=== PATIENT | male | born 1995 | race Two or more races ===

== ENCOUNTER 2017-01-12 23:52 | Emergency (ER) | payer OTHER ==
[~2017-01-12] VITALS: Ht 170.2 cm; Wt 59.0 kg
[2017-01-13 00:36] VITALS: BP 123/68
== END 2017-01-13 00:35 | disposition home or self-care (01) ==
LOC: ER 23:59
DX: Z76.0 Encounter for issue of repeat prescription (principal); E11.9 Type 2 diabetes mellitus without complications; Z79.4 Long term (current) use of insulin; Z88.1 Allergy status to other antibiotic agents
CPT/HCPCS: A4606; Z7610

== ENCOUNTER 2017-02-06 21:43 | Emergency (ER) | payer OTHER ==
--- NOTE | 2017-02-06 21:48 | NUR ---
CALLED FOR TRIAGE; NO ANSWER.
--- NOTE | 2017-02-06 21:52 | NUR ---
CALLED AGAIN; NO ANSWER
--- NOTE | 2017-02-06 21:59 | NUR ---
CALLED AGAIN; NOT IN LOBBY
--- NOTE | 2017-02-06 22:05 | NUR ---
CALLED 4HT TIME; NO ANSWER.
--- NOTE | 2017-02-06 22:30 | NUR ---
To bed a 21 yo male bibself with c/o of hyperglycemia at home. Patient is alert oriented x4, ambulatory. Accucheck reads >600. No s/s of acute distress. Breathing even and unlabored. Skin warm and dry. VSS. Placed on cardiac monitoring. Awaiting for er md barrientos.
--- NOTE | 2017-02-06 22:45 | NUR ---
Started a saline lock on right ac 18g, blood drawn, called lab for picker operator.
[2017-02-06] MEDS ORDERED: IV NS 0.9% 1,000 ML BAG IV ONE (23:00)
--- NOTE | 2017-02-06 23:00 | NUR ---
xr tech at bedside.
[2017-02-06] MEDS ORDERED: IV NS 0.9% 2,000 ML ONE (23:04)
[2017-02-06] MEDS ORDERED: IV SET PRIMARY 1 EA INFUS.SET MC ONE (23:04)
--- NOTE | 2017-02-06 23:08 | NUR ---
Started IVF NS 2L as prescribed. Will continue to monitor.
[2017-02-06 23:29] LABS: BASOPHILS % (AUTO) 0.4 % (0.0-2.0); EOSINOPHILS # (AUTO) 0.2 /CMM (0.0-0.7); EOSINOPHILS % (AUTO) 3.3 % (0.0-6.0); HEMATOCRIT 45 % (39-51); HEMOGLOBIN 15.1 g/dL (13.5-17.5); LYMPHOCYTES # (AUTO) 2.1 /CMM (0.8-4.8); LYMPHOCYTES % (AUTO) 31.3 % (20.0-44.0); MEAN CORPUSCULAR HEMOGLOBIN 28 PG (26.0-33.0); MEAN CORPUSCULAR HGB CONC 34 g/dl (31.0-36.0); MEAN CORPUSCULAR VOLUME 82 fL (80-96); MONOCYTES # (AUTO) 0.4 /CMM (0.1-1.30); MONOCYTES % (AUTO) 5.4 % (2.0-12.0); NEUTROPHILS % (AUTO) 59.6 % (43.0-81.0); PLATELET COUNT (AUTO) 231 /CMM (150-450); RDW COEFFICIENT OF VARIATION 12.9 (11.5-15.0); RED BLOOD CELL COUNT(AUTO) 5.51 MIL/uL (4.5-6.0); WHITE BLOOD COUNT (AUTO) 6.8 K/uL (4.3-11.0)
[2017-02-06 23:31] LABS: BILIRUBIN,URINE NEGATIVE (NEGATIVE); BLOOD, URINE NEGATIVE Ery/uL (NEGATIVE); KETONES,URINE NEGATIVE (NEGATIVE); LEUKOCYTE ESTERASE ,URINE NEGATIVE (NEGATIVE); NITRITE, URINE NEGATIVE (NEGATIVE); PROTEIN,URINE NEGATIVE (NEGATIVE); UGLUCOSE 3+ mg/dL (NEGATIVE); UROBILINOGEN,URINE 0.2 EU/dL (0.2)
[2017-02-06 23:32] LABS: APPEARANCE,URINE CLEAR (CLEAR); COLOR,URINE STRAW (YELLOW)
[2017-02-06 23:34] LABS: ADD URINE CULTURE NO; BACTERIA,URINE None seen /HPF (None Seen); RBC,URINE NONE SEEN /HPF (0-2); WBC,URINE NONE SEEN /HPF (0-3)
[2017-02-06 23:35] LABS: SQUAMOUS EPITHELIAL CELL,UR Rare /HPF (None Seen)
[2017-02-06 23:58] LABS: BILIRUBIN,TOTAL 0.5 mg/dL (0.2-1.0); CALCIUM, SERUM 8.9 mg/dL (8.5-10.1); CREATININE 1.2 mg/dL (0.6-1.3); POTASSIUM 4.2 mmol/L (3.5-5.1); TOTAL PROTEIN, SERUM 7.9 g/dL (6.4-8.2)
--- NOTE | 2017-02-07 00:27 | NUR ---
[facility], Dr Brennan is made aware, received new orders.
[2017-02-07] MEDS ORDERED: IV SET PRIMARY 1 EA INFUS.SET MC ONE (00:28)
[2017-02-07] MEDS ORDERED: IV NS 0.9% 1,000 ML ONE (00:28)
[2017-02-07] MEDS ORDERED: INSULIN REGULAR, HUMAN 100 UNIT/ML 10 ML VIAL ONE (00:28)
[2017-02-07] MEDS ORDERED: POTASSIUM CHLORIDE 20 MEQ TAB.PRT.SR PO ONE ×2 (00:28→00:30)
[2017-02-07] MEDS ORDERED: INSULIN REGULAR, HUMAN 100 UNIT/ML 10 ML VIAL SQ ONE (00:30)
[2017-02-07] MEDS ORDERED: IV NS 0.9% 1,000 ML BAG IV ONE (00:30)
--- NOTE | 2017-02-07 01:08 | NUR ---
Blood sugar recheck is 366mg/dl. Dr Stauffer is aware.
--- NOTE | 2017-02-07 01:20 | NUR ---
Patient discharged to home in stable condition. Written and verbal after care instructions given. Patient verbalizes understanding of instruction. Patient is ambulatory with steady gait. Patient went home with some snacks and juice.
[2017-02-07 01:43] VITALS: BP 124/78
== END 2017-02-07 01:20 | disposition home or self-care (01) ==
LOC: ER 21:46
DX: E11.65 Type 2 diabetes mellitus with hyperglycemia (principal); E86.0 Dehydration; E87.1 Hypo-osmolality and hyponatremia; Z88.1 Allergy status to other antibiotic agents
CPT/HCPCS: 36415; 71010; 80053; 81001; 82962 ×3; 83690; 85025; 93005; 96360; 96372; 99285; J1815; J7030; 81000-TC

== ENCOUNTER 2017-02-10 18:19 | Inpatient (IN) | payer OTHER ==
[~2017-02-10] VITALS: Ht 162.6 cm; Wt 54.9 kg
--- NOTE | 2017-02-10 18:30 | NUR ---
PT [facility] TO ER BD 14. C/O NAUSEA AND VOMITING. GENERALIZED WEAKNESS X TODAY. PT IN CUSTODY. HX OF DIABETES. GOWNED AND PLACED ON MONITOR. AWAITING MD TODD.
--- NOTE | 2017-02-10 18:44 | NUR ---
DR GEORGE AT BEDSIDE FOR EVAL.
[2017-02-10] MEDS ORDERED: IV NS 0.9% 1,000 ML BAG IV ONE ×2 (19:00→20:00)
[2017-02-10] MEDS ORDERED: IV SET PRIMARY 1 EA INFUS.SET MC ONE (19:25)
[2017-02-10] MEDS ORDERED: IV NS 0.9% 1,000 ML ONE ×2 (19:25→20:10)
--- NOTE | 2017-02-10 19:25 | NUR ---
IV LINE STARTED. BLOOD DRAWN AND SENT TO LAB.
[2017-02-10 19:31] LABS: BASOPHILS % (AUTO) 0.3 % (0.0-2.0); EOSINOPHILS % (AUTO) 0.2 % (0.0-6.0); HEMATOCRIT 43 % (39-51); HEMOGLOBIN 14.2 g/dL (13.5-17.5); LYMPHOCYTES # (AUTO) 1.2 /CMM (0.8-4.8); LYMPHOCYTES % (AUTO) 13.4 % (20.0-44.0); MEAN CORPUSCULAR HEMOGLOBIN 27 PG (26.0-33.0); MEAN CORPUSCULAR HGB CONC 33 g/dl (31.0-36.0); MEAN CORPUSCULAR VOLUME 82 fL (80-96); MONOCYTES # (AUTO) 0.3 /CMM (0.1-1.30); MONOCYTES % (AUTO) 3.6 % (2.0-12.0); NEUTROPHILS # (AUTO) 7.7 /CMM (1.8-8.9); NEUTROPHILS % (AUTO) 82.5 % (43.0-81.0); PLATELET COUNT (AUTO) 263 /CMM (150-450); RDW COEFFICIENT OF VARIATION 12.2 (11.5-15.0); RED BLOOD CELL COUNT(AUTO) 5.26 MIL/uL (4.5-6.0); WHITE BLOOD COUNT (AUTO) 9.2 K/uL (4.3-11.0)
[2017-02-10 19:53] LABS: ALBUMIN 4.2 g/dL (3.4-5.0); BILIRUBIN,DIRECT 0.2 mg/dL (0.0-0.2); CALCIUM, SERUM 9.2 mg/dL (8.5-10.1); POTASSIUM 4.8 mmol/L (3.5-5.1); TOTAL PROTEIN, SERUM 7.9 g/dL (6.4-8.2)
[2017-02-10 20:17] LABS: ABG BASE EXCESS -8.9 mmol/L; ABG PCO2 34.9 mmHg (35.0-45.0); ABG PH 7.295 (7.350-7.450); ABG PO2 54.9 mmHg (75.0-100.0); COHb 0.9 % (0.5-1.5); MetHb 0.7 % (0.0-1.5); O2Hb 83.6 % (94.0-97.0); SITE, ABG Left Brachial; VENT MODE, BG RA
[2017-02-10] MEDS ORDERED: IV PREMIX 0.45% NS + KCL 1,000 ML IV ONE ×2 (20:35→21:11)
--- NOTE | 2017-02-10 20:39 | NUR ---
PAGED ASSURANCE SERVICES MANAGER HEALTH CARE PANEL DR ROMERO
[2017-02-10 20:40] LABS: APPEARANCE,URINE Clear (CLEAR); BILIRUBIN,URINE Negative (NEGATIVE); BLOOD, URINE Negative Ery/uL (NEGATIVE); COLOR,URINE Yellow (YELLOW); KETONES,URINE >=160 (NEGATIVE); LEUKOCYTE ESTERASE ,URINE Negative (NEGATIVE); NITRITE, URINE Negative (NEGATIVE); PROTEIN,URINE Negative (NEGATIVE); UGLUCOSE 500 MG/DL mg/dL (NEGATIVE); UROBILINOGEN,URINE 0.2 EU/dL (0.2)
[2017-02-10] MEDS ORDERED: IV SET PRIMARY PUMP SET 1 EA INFUS.SET MC ONE ×2 (20:47→21:12)
--- NOTE | 2017-02-10 20:58 | NUR ---
INSULIN DRIP STARTED. DOSE VERIFIED W/ CHARGE NURSE
[2017-02-10] MEDS ORDERED: INSULIN REGULAR, HUMAN 100 UNIT in IV NS 0.9% 99 ML IV ONE ×2 (21:00)
--- NOTE | 2017-02-10 21:06 | NUR ---
BLOOD SUGAR RECHECK 333 MG/DL. ERMZina AWRE.
[2017-02-10 21:15] LABS: ADD URINE CULTURE NO; BACTERIA,URINE None seen /HPF (None Seen); RBC,URINE 0-2 /HPF (0-2); SQUAMOUS EPITHELIAL CELL,UR None Seen /HPF (None Seen); WBC,URINE 0-2 /HPF (0-3)
--- NOTE | 2017-02-10 21:27 | NUR ---
REPORT GIVEN TO SHANTEL. PT AWAITING TRANSFER TO FLOOR.
[2017-02-10] MEDS ORDERED: IV NS 0.9% 1,000 ML IV PRN (21:28)
[2017-02-10] MEDS ORDERED: IV PREMIX D5 1/2NS + KCL 1,000 ML IV PRN (21:28)
[2017-02-10] MEDS ORDERED: INSULIN REGULAR, HUMAN 100 UNIT in IV NS 0.9% 99 ML IV PRN ×2 (21:30)
[2017-02-10] MEDS ORDERED: ONDANSETRON HCL/PF 4 MG/2 ML VIAL IVP PRN (21:30)
[2017-02-10] MEDS ORDERED: ACETAMINOPHEN 325 MG TABLET PO PRN (21:30)
--- NOTE | 2017-02-10 21:40 | NUR ---
ICU/RN- RECEIVED PT FROM ER W/ DX OF DKA. PT IS IN CUSTODY W/ 2 [facility] AT BEDSIDE. PT A/OX4. STATES THAT HE HAS SLIGHT NAUSEA AT THIS TIME. ON MONITOR W/ SR 80S. ON RA W/ O2 SAT 98%. RESP EVEN AND UNLABORED. HL 18 FA X2 PATENT AND INTACT W/ INSULIN AT 4UNITS/HR. TOLERATING WELL. WILL TITRATE PER PROTOCOL. 1/2NS + 20MEQ KCL INFUSING @ 100ML/HR FROM ER. INSTRUCTED PT TO USE CALL LIGHT FOR ASSISTANCE. CALL LIGHT W/ IN REACH. AWAITING ADMITTING ORDERS.
[2017-02-10 22:00] VITALS: BP 121/49
[2017-02-10] MEDS ORDERED: BLOOD SUGAR DIAGNOSTIC 1 EACH STRIP IN ONE (22:00)
[2017-02-10 22:30] VITALS: BP 119/63
--- NOTE | 2017-02-10 22:30 | NUR ---
ICU/RN- CLARIFIED ORDERS W/ DR ROMERO. ORDERED ACCUCHECKS Q 1 HR AND CALCULATE UNITS BY BSX2 /100. BMP Q 4 HRS. CHANGE IV TO D5 1/2 NS WHEN BS < 250. STOP INSULIN DRIP WHEN ANION GAP <12. THEN START PT ON REGULAR INSULIN SQ W/ MODERATE SLIDING SCALE. ORDERS CARRIED OUT.
[2017-02-10] MEDS: BLOOD SUGAR DIAGNOSTIC 1 EACH STRIP IN SCH (22:59)
[2017-02-10 23:00] VITALS: BP 125/73
[2017-02-10] MEDS ORDERED: IV PREMIX D5 1/2NS + KCL 1,000 ML IV ONE (23:06)
[2017-02-10 23:19] LABS: CALCIUM, SERUM 8.2 mg/dL (8.5-10.1); CREATININE 0.9 mg/dL (0.6-1.3); POTASSIUM 4.1 mmol/L (3.5-5.1)
[2017-02-11] VITALS (30 sets, daily range): BP systolic 86–142; BP diastolic 41–82
[2017-02-11] MEDS: BLOOD SUGAR DIAGNOSTIC 1 EACH STRIP IN SCH ×12 (00:11→20:09)
[2017-02-11] MEDS ORDERED: QUET300T2 PO (01:14)
[2017-02-11] MEDS ORDERED: SERT50TA PO (01:14)
[2017-02-11] MEDS ORDERED: BUPR100T5 PO (01:14)
--- NOTE | 2017-02-11 01:18 | NUR ---
ICU/RN- INFORMED MD ABOUT UPDATED MED RECON AND PT REQUEST FOR SLEEPING AID MEDICATION. OK'D TO CONTINUE HOME MEDS AND GIVE RESTORIL 15 MG Q HS PRN SLEEP. ORDERS CARRIED OUT.
[2017-02-11] MEDS ORDERED: TEMAZEPAM 15 MG CAPSULE ONE (01:19)
[2017-02-11] MEDS ORDERED: TEMAZEPAM 15 MG CAPSULE PO PRN (01:30)
[2017-02-11 03:10] LABS: BASOPHILS % (AUTO) 0.2 % (0.0-2.0); EOSINOPHILS # (AUTO) 0.1 /CMM (0.0-0.7); EOSINOPHILS % (AUTO) 1.3 % (0.0-6.0); HEMATOCRIT 39 % (39-51); HEMOGLOBIN 13.2 g/dL (13.5-17.5); LYMPHOCYTES % (AUTO) 33.6 % (20.0-44.0); MEAN CORPUSCULAR HEMOGLOBIN 27 PG (26.0-33.0); MEAN CORPUSCULAR HGB CONC 34 g/dl (31.0-36.0); MEAN CORPUSCULAR VOLUME 81 fL (80-96); MONOCYTES # (AUTO) 0.7 /CMM (0.1-1.30); MONOCYTES % (AUTO) 7.2 % (2.0-12.0); NEUTROPHILS # (AUTO) 5.2 /CMM (1.8-8.9); NEUTROPHILS % (AUTO) 57.7 % (43.0-81.0); PLATELET COUNT (AUTO) 251 /CMM (150-450); RDW COEFFICIENT OF VARIATION 13.4 (11.5-15.0); RED BLOOD CELL COUNT(AUTO) 4.87 MIL/uL (4.5-6.0); WHITE BLOOD COUNT (AUTO) 9.1 K/uL (4.3-11.0)
[2017-02-11 03:27] LABS: CALCIUM, SERUM 8.3 mg/dL (8.5-10.1); POTASSIUM 4.1 mmol/L (3.5-5.1)
--- NOTE | 2017-02-11 06:37 | NUR ---
ICU/RN- NAD NOTED. ALL NEEDS ATTENDED AND MET. WILL ENDORSE TO AM SHIFT FOR CONTINUATION OF CARE.
--- NOTE | 2017-02-11 07:30 | NUR ---
LABOR CONTRACTOR: pt.is A.Ox4, no c/o, no pain, VSS, BS 89 at 07.00 and insulin drip was stopped, continue IVF NS 150ml/h by night nurse report, waiting next BMP, GAP 12, pt.is underwear welter custody in the room
[2017-02-11 07:45] LABS: CALCIUM, SERUM 8.5 mg/dL (8.5-10.1); CREATININE 0.7 mg/dL (0.6-1.3)
--- NOTE | 2017-02-11 08:02 | NUR ---
BARREL FINISHER: BS 80, spoke with pharmacy, paged for orders verification
--- NOTE | 2017-02-11 08:30 | NUR ---
AIRCRAFT ASSEMBLER: updated with insulin gtt is off since 07.00, BS, IVF, labs, gap, diet, ordered: accuV q4h with moderate R.insulin SS coverage, continue D5 1/2NS@100ml/h, charge nurse updated
[2017-02-11] MEDS: SERTRALINE HCL 50 MG TABLET PO SCH (08:39)
[2017-02-11] MEDS: PANTOPRAZOLE 40 MG TABLET.DR PO SCH (08:39)
[2017-02-11] MEDS ORDERED: DEXTROSE 50%-WATER 50 ML DISP.SYRIN IV PRN (09:00)
[2017-02-11] MEDS ORDERED: IV D5/0.45 NACL 1,000 ML IV PRN (09:00)
[2017-02-11] MEDS ORDERED: IV D5/0.45 NACL 1,000 ML IV ONE (09:04)
--- NOTE | 2017-02-11 11:00 | NUR ---
COMMUNICATIONS MANAGER: is in room, spoke with pt., mark, updated with pt.current condition, VS, BS, IVF, diet/appetite, labs, meds, said: continue current IVF same rate D5 1/2NS bag, monitor BS, appetite, able to d/c f/u monitoring, see next BMP and continue daily
[2017-02-11] MEDS: buPROPion SR 100 MG TABLET.ER PO SCH (11:06)
[2017-02-11 11:45] LABS: CALCIUM, SERUM 8.1 mg/dL (8.5-10.1); CREATININE 0.9 mg/dL (0.6-1.3); POTASSIUM 5.5 mmol/L (3.5-5.1)
--- NOTE | 2017-02-11 12:30 | NUR ---
ADVANCED PRACTICE NURSE PSYCHOTHERAPIST: BS 551, Gap 15, Na 129, K 5.5, called back, updated, ordered: ok to give R.Insulin 15 units sq per moder.SS, BMP at 16.00, stop IVF
[2017-02-11] MEDS: INSULIN REGULAR, HUMAN 100 UNIT/ML 3 ML VIAL SQ PRN ×3 (12:38→20:17)
[2017-02-11 16:45] LABS: CALCIUM, SERUM 8.7 mg/dL (8.5-10.1); CREATININE 0.9 mg/dL (0.6-1.3); POTASSIUM 3.7 mmol/L (3.5-5.1)
--- NOTE | 2017-02-11 17:30 | NUR ---
HAND POTTER: pt.is A/Ox4, no c/o, no pain, SR, O2sat., BP WNL, Na 133, K 3.7, gap 10, BS 333, on mod.RISS q4hr
--- NOTE | 2017-02-11 19:30 | NUR ---
ICU/RN- PT IN ROOM A/OX4, DENIES ANY S/SX OF HYPO/HYPERGLYCEMIA. PT IN CUSTODY W/ X2 RUSSIAN TEACHER OFFICERS AT BEDSIDE. HAND CUFF IN PLACE ON R WRIST. ON RA W/ O2 SAT 98%. RESP EVEN AND UNLABORED. HL IN RFA AND RW PATENT AND INTACT. INSTRUCTED PT TO USE CALL LIGHT FOR ASSISTANCE. WILL MONITOR ACCORDINGLY.
[2017-02-11] MEDS: QUETIAPINE FUMARATE 100 MG TABLET PO SCH (21:41)
[2017-02-12] VITALS (12 sets, daily range): BP systolic 96–116; BP diastolic 59–69
[2017-02-12] MEDS: BLOOD SUGAR DIAGNOSTIC 1 EACH STRIP IN SCH ×6 (00:08→21:03)
[2017-02-12] MEDS: INSULIN REGULAR, HUMAN 100 UNIT/ML 3 ML VIAL SQ PRN ×5 (00:10→21:07)
[2017-02-12 04:52] LABS: CALCIUM, SERUM 8.8 mg/dL (8.5-10.1); CREATININE 0.8 mg/dL (0.6-1.3)
--- NOTE | 2017-02-12 05:10 | NUR ---
RECEIVED REPORT FROM ICU REGARDING TRANSFER. AWAITING ARRIVAL IN UNIT, ROOM IS READY
--- NOTE | 2017-02-12 05:11 | NUR ---
ICU/RN- REPORT GIVEN TO ELADIA BURNS FOR MS TRANSFER TO RM 205.
--- NOTE | 2017-02-12 05:40 | NUR ---
ICU/RN- TRANSFERRED PT TO [place] [id number] IN STABLE CONDITION. W/ X 2 PIE BAKER AT BEDSIDE
--- NOTE | 2017-02-12 05:45 | NUR ---
RECEIVED PATIENT FROM ICU, ALERT AND ORIENTED X4, CALM, ON ROOM AIR, 02 SAT 100%, DENIES ANY PAIN AT THIS TIME, LUNG SOUNDS ARE CLEAR, ABDOMEN SOFT AND NON-TENDER, BG IS 90 MG/DL NO COVERAGE, ACCUCHECK Q4 HOURS. PATIENT IS UNDER POLICE CUSTODY, WITH HANDCUFF TIED TO THE BED, USES URINAL TO VOID. NEEDS ATTENDED, CALL LIGHT WITHIN REACH.
--- NOTE | 2017-02-12 07:51 | NUR ---
AM RN NOTES RECEIVED PT SLEEPING COMFORTABLY IN BED, EASY TO AWAKE, MONITORED BY POLICE AT BEDSIDE, NO S/S OF HYPO OR HYPERGLYCEMIA, WILL MONITOR PT. Addendum: 02/12/17 at 0902 by MARTHA MCNAIR RN ADDENDUM: ABOVE NOTE DOCUMENTED BY ME UNDER WRONG LOG IN, DOCUMENTATION IS CORRECT.
[2017-02-12] MEDS: SERTRALINE HCL 50 MG TABLET PO SCH (08:42)
[2017-02-12] MEDS: PANTOPRAZOLE 40 MG TABLET.DR PO SCH (08:42)
[2017-02-12] MEDS: buPROPion SR 100 MG TABLET.ER PO SCH (08:42)
--- NOTE | 2017-02-12 08:50 | NUR ---
PT RESTING IN BED, NOTED WITH HYPERGLYCEMIA BS 554 MG/DL, ASYMPTOMATIC , INFORMED NEW ORDER RECEIVED
[2017-02-12] MEDS ORDERED: INSULIN DETEMIR 100 UNIT/ML CARTRIDGE SQ STA (08:51)
--- NOTE | 2017-02-12 09:22 | NUR ---
BS RECHECKED PRIOR TO ADMINISTER LONG ACTING INSULIN SHOWS "HIGH", PT ALERT AND ORIENTED, ASYMPTOMATIC, PT REFUSED TO RECHECK BS AT THIS TIME, LONG ACTING INSULIN 20 UNITS GIVEN PER ORDER, WILL MONITOR.
--- NOTE | 2017-02-12 09:45 | NUR ---
BLOOD SUGAR CHECK DONE X2 SHOWS "HI", PT IS ASYMPTOMATIC, INFORMED.
[2017-02-12] MEDS ORDERED: INSULIN REGULAR, HUMAN 100 UNIT/ML 10 ML VIAL SQ STA (09:56)
--- NOTE | 2017-02-12 09:56 | NUR ---
DR. LIANG CALLED BACK, NEW ORDERS RECEIVED.
[2017-02-12] MEDS ORDERED: IV NS 0.9% 1,000 ML IV ONE (10:00)
[2017-02-12] MEDS ORDERED: SECONDARY IV SET 1 EA INFUS.SET MC ONE (10:08)
[2017-02-12] MEDS ORDERED: IV SET PRIMARY PUMP SET 1 EA INFUS.SET MC ONE (10:11)
--- NOTE | 2017-02-12 10:58 | NUR ---
CALLED AFTER REPORTING BS 583 MG/DL, NEW ORDER RECEIVED, TO GIVE ANOTHER 20 UNITS OF LONG ACTING INSULIN. PT ALERT AND ORIENTED, WATCHING TV. WILL MONITOR.
[2017-02-12] MEDS ORDERED: INSULIN DETEMIR 100 UNIT/ML CARTRIDGE SQ ONE (11:00)
[2017-02-12] MEDS ORDERED: POTASSIUM CHLORIDE 20 MEQ TAB.PRT.SR PO SCH (11:30)
[2017-02-12] MEDS ORDERED: INSU3INS6 SUBCUT (12:03)
--- NOTE | 2017-02-12 12:10 | NUR ---
PT SEEN BY DR. PITTMAN
[2017-02-12] MEDS: INSULIN ASPART NOVOLOG 100 UNIT/ML CARTRIDGE SQ SCH ×3 (12:33→21:06)
[2017-02-12 13:11] LABS: CALCIUM, SERUM 8.7 mg/dL (8.5-10.1); CREATININE 0.9 mg/dL (0.6-1.3); POTASSIUM 3.9 mmol/L (3.5-5.1)
--- NOTE | 2017-02-12 17:04 | NUR ---
PT NOTED WITH BS 49 MG/DL, ASYMPTOMATIC, ALERT AND ORIENTED, D50% GIVEN PER ORDER, WILL INFORM MD AND MONITOR BS
--- NOTE | 2017-02-12 17:29 | NUR ---
D50% ADMINISTERED FOR HYPOGLYCEMIA, BS RECHECKED AND NOTE 203 MG/DL, DR MARADIAGA INFORMED AND PER MD TO GIVE INSULIN PER SLIDING SCALE BEFORE DINNER. WILL MONITOR PT
--- NOTE | 2017-02-12 18:10 | NUR ---
PT CONSUMES HIS DINNER, INSULIN PER SLIDING SCALE GIVEN PER DR. MARADIAGA'S ORDER.
--- NOTE | 2017-02-12 18:18 | NUR ---
PT IN STABLE CONDITION, POLICE OFFICERS ARE AT BEDSIDE, WILL INDORSE TO NEXT SHIFT FOR MATI.
--- NOTE | 2017-02-12 19:40 | NUR ---
MS RN NOTE: PATIENT RESTING IN BED, NO ACUTE DISTRESS NOTED, COMMUNICATIONS STATION MANAGER OFFICERS AT BEDSIDE. BREATHING EVEN AND UNLABORED, NO SOB NOTED. HL TO RIGHT WRIST IN PLACE. PATIENT DENIES S/S OF HYPER/HYPOGLYCEMIA AT THIS TIME. BED LOCKED AND IN LOWEST POSITION, CALL LIGHT IN REACH, WILL CONTINUE TO MONITOR.
[2017-02-12] MEDS: QUETIAPINE FUMARATE 100 MG TABLET PO SCH (21:03)
--- NOTE | 2017-02-12 21:15 | NUR ---
MS RN NOTE: PATIENT BLOOD SUGAR LEVEL 365 MG/DL, PATIENT TO RECEIVE 15 UNITS OF REGULAR INSULIN PER SLIDING SCALE AND 5 UNITS OF NOVOLOG PER MD ORDER. PATIENT DENIES S/S OF HYPERGLYCEMIA AT THIS TIME. WILL CONTINUE TO MONITOR.
--- NOTE | 2017-02-12 23:00 | NUR ---
MS RN NOTE: PATIENT REQUESTING TO RECHECK BLOOD SUGAR LEVEL SINCE HIS BLOOD SUGAR TRENDS TO VARY. BLOOD SUGAR LEVEL 310 MG/DL. PATIENT DENIES S/S OF HYPER/HYPOGLYCEMIA AT THIS TIME. INFORMED THAT BLOOD SUGAR WILL BE CHECKED AGAIN AT 0100. WILL CONTINUE TO MONITOR.
[2017-02-13] MEDS: BLOOD SUGAR DIAGNOSTIC 1 EACH STRIP IN SCH ×4 (00:48→12:10)
--- NOTE | 2017-02-13 01:00 | NUR ---
MS RN NOTE: PATIENT BLOOD SUGAR LEVEL 110 MG/DL, NO INSULIN NEEDED PER SLIDING SCALE, PATIENT DENIES S/S OF HYPOGLYCEMIA AT THIS TIME. SNACKS PROVIDED, WILL CONTINUE TO MONITOR.
--- NOTE | 2017-02-13 06:00 | NUR ---
MS RN NOTE: PATIENT RESTING IN BED, NO ACUTE DISTRESS NOTED, VICE PRESIDENT OF ENGINEERING OFFICERS AT BEDSIDE. BREATHING EVEN AND UNLABORED, NO SOB NOTED. HL TO RIGHT WRIST IN PLACE. PATIENT BLOOD SUGAR LEVEL 93MG/DL, PATIENT DENIES S/S OF HYPOGLYCEMIA AT THIS TIME. SNACKS PROVIDED. BED LOCKED AND IN LOWEST POSITION, CALL LIGHT IN REACH, WILL ENDORSE TO DAY NURSE TO CONTINUE WITH PLAN OF CARE.
[2017-02-13 07:03] LABS: CALCIUM, SERUM 8.8 mg/dL (8.5-10.1); CREATININE 0.8 mg/dL (0.6-1.3); POTASSIUM 4.1 mmol/L (3.5-5.1)
--- NOTE | 2017-02-13 07:15 | NUR ---
MS RN NOTE: PATIENT RESTING IN BED, NO ACUTE DISTRESS NOTED, ACCOUNTS ADJUSTABLE CLERK OFFICERS AT BEDSIDE. BREATHING EVEN AND UNLABORED, NO SOB NOTED. HL TO RIGHT WRIST IN PLACE. PATIENT DENIES S/S OF HYPOGLYCEMIA AT THIS TIME. SNACKS PROVIDED. BED LOCKED AND IN LOWEST POSITION, CALL LIGHT IN REACH.
[2017-02-13] MEDS: INSULIN DETEMIR 100 UNIT/ML CARTRIDGE SQ SCH ×2 (07:21→09:18)
[2017-02-13] MEDS: INSULIN ASPART NOVOLOG 100 UNIT/ML CARTRIDGE SQ SCH ×2 (07:22→12:13)
--- NOTE | 2017-02-13 07:25 | NUR ---
MS RN NOTE: PATIENT BLOOD SUGAR 309 MG/DL, PATIENT TO RECEIVE 40 UNITS OF LEVEMIR AND 5 UNITS OF NOVOLOG PER MD ORDER. SNACKS AT BEDSIDE. PATIENT DENIES S/S OF HYPER/HYPOGLYCEMIA AT THIS TIME. WILL ENDORSE TO DAY NURSE.
[2017-02-13 08:00] VITALS: BP 106/57
--- NOTE | 2017-02-13 09:00 | NUR ---
ms rn notes Levemir 40 units not given due to assistant casino shift manager RN already given the dose at 730am. MD made aware. Will continue to monitor patient.
[2017-02-13] MEDS: buPROPion SR 100 MG TABLET.ER PO SCH (09:13)
[2017-02-13] MEDS: SERTRALINE HCL 50 MG TABLET PO SCH (09:13)
[2017-02-13] MEDS: PANTOPRAZOLE 40 MG TABLET.DR PO SCH (09:13)
[2017-02-13] MEDS: INSULIN REGULAR, HUMAN 100 UNIT/ML 3 ML VIAL SQ PRN ×2 (09:20→12:55)
--- NOTE | 2017-02-13 09:21 | NUR ---
WOUND CARE CONSULT: PT PRESENTS WITH DRY SCRATCHES TO LEFT ARM AND SMALL DRY SCAB TO RT HAND, PRESENT ON ADMISSION. NO WOUND CARE NEEDED AT THIS TIME. WILL SEE PRN. OFFICERS AT BEDSIDE. Addendum: 02/13/17 at 0922 by SUE SPAULDING WNDNU Amended: Links added.
--- NOTE | 2017-02-13 14:50 | NUR ---
MS BELT MACHINE OPERATOR NOTES: DISCHARGE INSTRUCTIONS GIVEN TO PATIENT. PT ABLE TO UNDERSTAND. SIGNED DISCHARGE PAPERS AND BELONGINGS LIST. DISCONTINUED IV. PT WAS ALERT AND ORIENTED. NO SIGNS AND SYMPTOMS OF DISCOMFORT AND PAIN. BOILER ROOM OPERATOR'S ON SITE FOR CONSTANT MONITORING. FLU VACCINE NOT GIVEN. PT ALREADY HAD IT ON 2016. PNEUMONIA VACCINE N/A. PT IS BELOW 67 Y/O. PT LEFT VIA AMBULATORY ACCOMPANIED BY 2 INSPECTOR PLATING. IN STABLE CONDITION. NO SIGNS AND SYMPTOMS OF SOB AND DISTRESS. PICTURES TAKEN BY DRUG COORDINATOR NURSE AND FILED IN CHART. MD AND CHARGE NURSE AWARE. VITAL SIGNS CHECKED AND RECORDED.
== END 2017-02-13 14:50 | DRG 639 ==
LOC: ER 18:20 → ICU 20:41 → MEDSG2 02-12 05:25
PROVIDERS: ADMIT Internal Medicine; ATTEND Internal Medicine
DX: E10.10 Type 1 diabetes mellitus with ketoacidosis without coma (principal); F29 Unspecified psychosis not due to a substance or known physiological condition; E87.6 Hypokalemia; E83.42 Hypomagnesemia; E86.0 Dehydration; F17.210 Nicotine dependence, cigarettes, uncomplicated; Z83.3 Family history of diabetes mellitus; F20.9 Schizophrenia, unspecified
CPT/HCPCS: 36415; 36600; 80048-TC; 80076-TC; 81000-TC; 82962-TC; 83690-TC; 85025-TC; 87081-TC; A4606; J1815; J2405; J3490; J7030; Z7610

== ENCOUNTER 2017-03-07 22:35 | Emergency (ER) | payer OTHER ==
[~2017-03-07] VITALS: Ht 152.4 cm; Wt 56.7 kg
[~2017-03-07 22:35] MED LIST: BUPR100T5 PO; INSU3INS6 SUBCUT; QUET300T2 PO; SERT50TA PO
[2017-03-07 22:58] VITALS: BP 114/73
== END 2017-03-07 23:11 | disposition home or self-care (01) ==
LOC: ER 22:36
DX: Z76.0 Encounter for issue of repeat prescription (principal); E11.9 Type 2 diabetes mellitus without complications; F32.9 Major depressive disorder, single episode, unspecified; F31.9 Bipolar disorder, unspecified; F41.9 Anxiety disorder, unspecified; F20.9 Schizophrenia, unspecified; F90.9 Attention-deficit hyperactivity disorder, unspecified type; Z90.89 Acquired absence of other organs; Z88.1 Allergy status to other antibiotic agents
CPT/HCPCS: A4606; Z7610

== ENCOUNTER 2017-05-25 16:33 | Inpatient (IN) | payer OTHER ==
[~2017-05-25] VITALS: Ht 162.6 cm; Wt 51.3 kg
[2017-05-25] MEDS ORDERED: INSULIN REGULAR, HUMAN 100 UNIT/ML 10 ML VIAL ONE (16:45)
[2017-05-25] MEDS ORDERED: IV NS 0.9% 1,000 ML ONE ×3 (16:45→18:12)
--- NOTE | 2017-05-25 16:50 | NUR ---
PT CAME IN FOR HIGH BLOOD SUGAR. HX OF DM TYPE 1. PER PT SHE RAN OUT OF MEDS LAST NIGHT. NOTED BLOOD SUGAR ABOVE 600MG/DL. AT BS FOR EVAL. PT AAOX3. VSS. SAFETY AND COMFORT MEASURES PROVIDED. WILL MONITOR.
--- NOTE | 2017-05-25 16:55 | NUR ---
witnessed 10 units regular insulin with natanael noonan
[2017-05-25 16:57] LABS: BASOPHILS % (AUTO) 0.5 % (0.0-2.0); EOSINOPHILS # (AUTO) 0.1 /CMM (0.0-0.7); EOSINOPHILS % (AUTO) 0.9 % (0.0-6.0); HEMATOCRIT 48 % (39-51); HEMOGLOBIN 15.3 g/dL (13.5-17.5); LYMPHOCYTES # (AUTO) 1.5 /CMM (0.8-4.8); LYMPHOCYTES % (AUTO) 16.5 % (20.0-44.0); MEAN CORPUSCULAR HEMOGLOBIN 27 PG (26.0-33.0); MEAN CORPUSCULAR HGB CONC 32 g/dl (31.0-36.0); MEAN CORPUSCULAR VOLUME 84 fL (80-96); MONOCYTES # (AUTO) 0.2 /CMM (0.1-1.30); MONOCYTES % (AUTO) 2.2 % (2.0-12.0); NEUTROPHILS # (AUTO) 7.3 /CMM (1.8-8.9); NEUTROPHILS % (AUTO) 79.9 % (43.0-81.0); PLATELET COUNT (AUTO) 260 /CMM (150-450); RDW COEFFICIENT OF VARIATION 11.9 (11.5-15.0); RED BLOOD CELL COUNT(AUTO) 5.69 MIL/uL (4.5-6.0); WHITE BLOOD COUNT (AUTO) 9.1 K/uL (4.3-11.0)
--- NOTE | 2017-05-25 16:58 | NUR ---
IV ACCESS STARTED. BLOOD DRAWN FOR LABS. PT MEDICATED ORDERED.
[2017-05-25] MEDS ORDERED: IV NS 0.9% 1,000 ML BAG IV ONE ×3 (17:00→18:00)
[2017-05-25] MEDS ORDERED: INSULIN REGULAR, HUMAN 100 UNIT/ML 10 ML VIAL IV ONE (17:00)
[2017-05-25 17:11] LABS: CALCIUM, SERUM 8.5 mg/dL (8.5-10.1); CREATININE 1.3 mg/dL (0.6-1.3); POTASSIUM 4.3 mmol/L (3.5-5.1)
[2017-05-25] MEDS ORDERED: ONDANSETRON HCL/PF 4 MG/2 ML VIAL IVP ONE (18:00)
[2017-05-25] MEDS ORDERED: ONDANSETRON HCL/PF 4 MG/2 ML VIAL ONE (18:12)
--- NOTE | 2017-05-25 18:15 | NUR ---
CALLED , TRANSFERRED CALL TO
--- NOTE | 2017-05-25 18:16 | NUR ---
CALLED NURSING SUP. FOR ICU BED
[2017-05-25] MEDS ORDERED: IV SET PRIMARY PUMP SET 1 EA INFUS.SET MC ONE ×2 (18:28→21:05)
[2017-05-25] MEDS ORDERED: INSULIN REGULAR, HUMAN 100 UNIT in IV NS 0.9% 99 ML IV PRN ×4 (18:30→22:00)
--- NOTE | 2017-05-25 19:28 | NUR ---
REPORT CALLED TO RN SCHOOLELADIA ZHOU. WILL TRANSPORT PT VIA ACLS PROTOCOL.
--- NOTE | 2017-05-25 19:30 | NUR ---
RN NOTES RECEIVED REPORT FROM COMMERCIAL LINES ASSISTANT ED FOR THE PATIENT'S CONTINUITY OF CARE
[2017-05-25 19:50] VITALS: BP 99/52
--- NOTE | 2017-05-25 19:50 | NUR ---
RN NOTES PT ARRIVED ON THE UNIT, A/O X4, ON ROOM AIR. DENIES ANY PAIN OR SOB. ABLE TO AMBULATE WITH A STEADY GAIT. SKIN IS INTACT. RIGHT FOREARM 20G WITH INSULIN DRIP @ 2UNITS/HR THAT WAS INITIATED IN ER. PT IS CONTINENT. VITALS STABLE. BLOOD SUGAR CURRENTLY 192. BED LOCKED AND LOW, SIDERAILS UP, CALL LIGHT WITHIN REACH. WILL CALL DR SINGH FOR ADMITTING ORDERS
[2017-05-25 20:01] VITALS: BP 99/52
--- NOTE | 2017-05-25 20:50 | NUR ---
RN NOTES CALLED DR SINGH FOR ADMITTING ORDERS. ALSO NOTIFIED HIM THAT PATIENT IS STILL ON INSULIN DRIP @ 2UNITS/HR AND MOST CURRENT BLOOD SUGAR WAS 192. RECEIVED VIA PHONE FROM DR SINGH: ADMIT TO ICU: DKA DIAGNOSIS DIABETIC DIET 1800 ADA STAT BNP AND CALL BACK FOR ANION GAP RESULT 1L NS BOLUS NOW NS+20MEQKCL @ 100MLS/HR LANTUS 40UNITS QHS NOVOLOG 6 UNITS QAC BEFORE MEALS AMBIEN 5MG HS PRN TYLENOL 650MG PO Q6H PRN ZOFRAN 4MG IV Q4H PRN DR SINGH WILL DECIDE TO CONTINUE OR DC INSULIN DRIP AFTER GETTING ANION GAP RESULT FROM STAT BMP. WILL INITIATE ORDERS.
[2017-05-25 21:00] VITALS: BP 112/56
[2017-05-25] MEDS ORDERED: ACETAMINOPHEN 325 MG TABLET PO PRN (21:00)
[2017-05-25] MEDS ORDERED: ZOLPIDEM TARTRATE 5 MG TABLET PO PRN (21:00)
[2017-05-25] MEDS ORDERED: ONDANSETRON HCL/PF 4 MG/2 ML VIAL IV PRN (21:00)
[2017-05-25] MEDS ORDERED: Potassium Chloride 20 MEQ in IV NS 0.9% 1,000 ML IV PRN (21:00)
[2017-05-25] MEDS ORDERED: IV NS 0.9% 1,000 ML IV ONE (21:00)
[2017-05-25 21:13] LABS: CALCIUM, SERUM 7.3 mg/dL (8.5-10.1); CREATININE 0.8 mg/dL (0.6-1.3); POTASSIUM 3.5 mmol/L (3.5-5.1)
--- NOTE | 2017-05-25 21:40 | NUR ---
RN NOTES CALLED DR SINGH TO NOTIFY ABOUT CURRENT ANION GAP OF [address] SINGH ORDERED IV FLUID TO BE CHANGED TO D5NS+YTK52GFR @ 80MLS/HR, BMP Q4H (NEXT ONE @ 0100), RESUME INSULIN DRIP @ 2UNITS/HR (NO TITRATION), ACCU CHECKS Q1H, AND TO CALL HIM NEEDED OR WHEN ANION GAP CLOSES
[2017-05-25] MEDS ORDERED: buPROPion 100 MG TABLET ONE (21:55)
[2017-05-25] MEDS ORDERED: DIVALPROEX SODIUM 500 MG TABLET.DR PO ONE (21:56)
[2017-05-25] MEDS ORDERED: QUETIAPINE FUMARATE 100 MG TABLET ONE (21:56)
[2017-05-25] MEDS ORDERED: buPROPion 100 MG TABLET PO SCH (22:00)
[2017-05-25] MEDS ORDERED: QUETIAPINE FUMARATE 100 MG TABLET PO SCH (22:00)
[2017-05-25] MEDS ORDERED: DIVALPROEX SODIUM 500 MG TABLET.DR PO SCH (22:00)
[2017-05-25] MEDS ORDERED: INSULIN GLARGINE, 100 UNIT/ML CARTRIDGE SQ SCH ×2 (22:00)
[2017-05-25] MEDS ORDERED: Potassium Chloride 20 MEQ in IV D5/ 0.9% NACL 1,000 ML IV PRN (22:00)
[2017-05-25] MEDS ORDERED: INSULIN DETEMIR 100 UNIT/ML CARTRIDGE SQ SCH (22:00)
[2017-05-25 22:04] VITALS: BP 105/45
[2017-05-25] MEDS ORDERED: IV PREMIX D5 NS + KCL 1,000 ML IV ONE (22:05)
[2017-05-25] MEDS ORDERED: INSULIN DETEMIR 100 UNIT/ML CARTRIDGE SQ ONE (22:05)
[2017-05-25 23:00] VITALS: BP 83/40
[2017-05-25 23:47] VITALS: BP 105/60
[2017-05-26] VITALS (12 sets, daily range): BP systolic 88–106; BP diastolic 48–68
--- NOTE | 2017-05-26 01:11 | NUR ---
RN NOTES FORGOT TO ADD ACCU CHECK Q1H IN EMAR, BUT ACCU CHECKS HAVE BEEN DONE Q1H. IV SPREADSHEET AND LAB VALUES IN EMR REFLECT Q1H ACCU CHECKS THAT HAVE BEEN DONE: 2200 - BS 128 2300 - BS 236 0000 - BS 224 0100 - BS 203
[2017-05-26 01:41] LABS: CALCIUM, SERUM 7.8 mg/dL (8.5-10.1); CREATININE 0.8 mg/dL (0.6-1.3); POTASSIUM 3.8 mmol/L (3.5-5.1)
[2017-05-26] MEDS ORDERED: DEXTROSE 50%-WATER 50 ML DISP.SYRIN IV PRN (02:00)
[2017-05-26] MEDS ORDERED: *INSULIN REGULAR(HUMULIN R)HUM 100 UNIT/ML VIAL SQ PRN (02:00)
[2017-05-26] MEDS ORDERED: INSULIN REGULAR, HUMAN 100 UNIT/ML 3 ML VIAL SQ PRN (02:00)
[2017-05-26] MEDS ORDERED: BLOOD SUGAR DIAGNOSTIC 1 EACH STRIP IN SCH (02:00)
[2017-05-26] MEDS ORDERED: Potassium Chloride 20 MEQ in IV NS 0.9% 1,000 ML IV PRN (02:00)
--- NOTE | 2017-05-26 02:00 | NUR ---
RN NOTES CALLED DR SINGH TO INFORM HIM THAT PATIENT ANION GAP IS 14. DR SINGH ORDERED TO D/C INSULIN DRIP, CHANGE IV FLUID TO NS+20MEQ KCL @ 80MLS/HR, ACHS MODERATE SLIDING SCALE, CBC AND BMP LAB DRAW FOR AM, AND DOWNGRADE TO TELEMETRY. WILL INITIATE ORDERS.
[2017-05-26] MEDS ORDERED: IV PREMIX NS +20MEQ KCL 1 L IV ONE (02:32)
[2017-05-26 04:59] LABS: BASOPHILS % (AUTO) 0.4 % (0.0-2.0); EOSINOPHILS # (AUTO) 0.3 /CMM (0.0-0.7); EOSINOPHILS % (AUTO) 3.9 % (0.0-6.0); HEMATOCRIT 39 % (39-51); HEMOGLOBIN 13.4 g/dL (13.5-17.5); LYMPHOCYTES # (AUTO) 3.5 /CMM (0.8-4.8); LYMPHOCYTES % (AUTO) 42.9 % (20.0-44.0); MEAN CORPUSCULAR HEMOGLOBIN 28 PG (26.0-33.0); MEAN CORPUSCULAR HGB CONC 34 g/dl (31.0-36.0); MEAN CORPUSCULAR VOLUME 81 fL (80-96); MONOCYTES # (AUTO) 0.5 /CMM (0.1-1.30); MONOCYTES % (AUTO) 6.5 % (2.0-12.0); NEUTROPHILS # (AUTO) 3.7 /CMM (1.8-8.9); NEUTROPHILS % (AUTO) 46.3 % (43.0-81.0); PLATELET COUNT (AUTO) 243 /CMM (150-450); RDW COEFFICIENT OF VARIATION 12.9 (11.5-15.0); RED BLOOD CELL COUNT(AUTO) 4.85 MIL/uL (4.5-6.0); WHITE BLOOD COUNT (AUTO) 8.1 K/uL (4.3-11.0)
[2017-05-26 05:04] LABS: CALCIUM, SERUM 8.1 mg/dL (8.5-10.1); CREATININE 0.8 mg/dL (0.6-1.3); POTASSIUM 3.7 mmol/L (3.5-5.1)
--- NOTE | 2017-05-26 07:00 | NUR ---
RN NOTES PT STATED FEELING LOW. BLOOD SUGAR CHECKED WITH A RESULT OF 56. WILL ADMINISTER D50 THEN ENDORSE TO AM RN TO RECHECK BLOOD SUGAR AFTER 30MIN
[2017-05-26] MEDS ORDERED: BLOOD SUGAR DIAGNOSTIC 1 EACH STRIP VI SCH (07:30)
--- NOTE | 2017-05-26 07:34 | NUR ---
INITIAL PROPERTY MASTER NOTE RCVD PT SLEEPING EASILY AROUSED BY NAME. SHOWING NO S/O DISTRESS OR C/O PAIN. SR ON TELE, BREATHING WELL ON RA. VOIDING TO URINAL. RFA #20 C/D/I/PATENT. NO S/O INFILTRATION OR PHLEBITIS OBSERVED. IVF INFUSING. WILL CONTINUE TO MONITOR PT FOR SAFETY AND COMFORT. CALL LIGHT WITHIN REACH. BED IN LOW AND LOCKED POSITION.
--- NOTE | 2017-05-26 08:00 | NUR ---
MANAGER INTEL NOTE BLOOD GLUCOSE CHECKED 176, PT STATES THAT HE'LL WAIT ON BREAKFAST AND WILL CALL ONCE READY TO EAT. PT INSTRUCTED TO CALL RN TO ADMINISTER INSULIN WHEN READY TO EAT.
[2017-05-26] MEDS ORDERED: INSULIN ASPART NOVOLOG 100 UNIT/ML CARTRIDGE SQ SCH (09:00)
--- NOTE | 2017-05-26 10:04 | NUR ---
PUBLIC STENOGRAPHER NOTE INSULIN HELD, BLOOD GLUCOSE 87
--- NOTE | 2017-05-26 11:20 | NUR ---
FINAL CHAPTER RELATIONS ADMINISTRATOR NOTE PT D/C HOME VITAL SIGNS STABLE, AMBULATORY WITH STEADY GAIT. PT PICKED UP BY BOYFRIEND AND TRANSPORTED HOME VIA PRIVATE VEHICLE. IV SITE REMOVED, PRESSURE DRESSING IN PLACE. SACK LUNCH PROVIDED. PT INSTRUCTED TO F/U WITH PRIMARY AND RESUME INSULIN AT HOME PER DR. SINGH'S RECOMMENDATIONS. PT ACKNOWLEDGED INFORMATION. BELONGINGS TAKEN BY PT, ROOM CHECKED AND NO BELONGINGS LEFT BEHIND. EDUCATION MATERIALS GIVEN AND DISCUSSED WITH PT.
[2017-05-26] MEDS ORDERED: INSULIN DETEMIR 100 UNIT/ML CARTRIDGE SQ SCH (22:00)
== END 2017-05-26 11:20 | disposition home or self-care (01) | DRG 420 ==
LOC: ER 16:36 → ICU 19:37
PROVIDERS: ADMIT Internal Medicine; ATTEND Internal Medicine
DX: E10.10 Type 1 diabetes mellitus with ketoacidosis without coma (principal); F31.9 Bipolar disorder, unspecified; F41.9 Anxiety disorder, unspecified; F17.210 Nicotine dependence, cigarettes, uncomplicated; Z91.19 Patient's noncompliance with other medical treatment and regimen; Z83.3 Family history of diabetes mellitus; Z79.4 Long term (current) use of insulin
CPT/HCPCS: 36415; 71010-TC; 80048-TC; 82010-TC; 82962-TC; 83880; 85025-TC; 87081-TC; A4606; J1815; J2405; J3480; J3490; J7030; J7042; Z7610

== ENCOUNTER 2017-09-21 14:08 | Emergency (ER) | payer OTHER ==
[~2017-09-21] VITALS: Ht 162.6 cm; Wt 53.1 kg
--- NOTE | 2017-09-21 14:10 | NUR ---
BIB SELF C/O FEELING WEAK AND NAUSEAOUS,INSULINS IN HIS BACK PACK WERE STOLEN LAST NIGHT, NAD NOTED, VSS, RESP EVEN AND UNLABORED. AT FOR PEREZ.
[2017-09-21 14:45] LABS: APPEARANCE,URINE Clear (CLEAR); BILIRUBIN,URINE Negative (NEGATIVE); BLOOD, URINE Large Ery/uL (NEGATIVE); COLOR,URINE Yellow (YELLOW); KETONES,URINE >=160 (NEGATIVE); LEUKOCYTE ESTERASE ,URINE Negative (NEGATIVE); NITRITE, URINE Negative (NEGATIVE); PROTEIN,URINE Negative (NEGATIVE); UGLUCOSE 500 MG/DL mg/dL (NEGATIVE); UROBILINOGEN,URINE 0.2 EU/dL (0.2)
[2017-09-21 14:45] LABS: BASOPHILS % (AUTO) 0.2 % (0.0-2.0); EOSINOPHILS # (AUTO) 0.1 /CMM (0.0-0.7); EOSINOPHILS % (AUTO) 0.7 % (0.0-6.0); HEMATOCRIT 47 % (39-51); HEMOGLOBIN 15.4 g/dL (13.5-17.5); LYMPHOCYTES # (AUTO) 1.6 /CMM (0.8-4.8); LYMPHOCYTES % (AUTO) 19.9 % (20.0-44.0); MEAN CORPUSCULAR HEMOGLOBIN 27 PG (26.0-33.0); MEAN CORPUSCULAR HGB CONC 33 g/dl (31.0-36.0); MEAN CORPUSCULAR VOLUME 82 fL (80-96); MONOCYTES # (AUTO) 0.4 /CMM (0.1-1.30); MONOCYTES % (AUTO) 4.8 % (2.0-12.0); NEUTROPHILS # (AUTO) 5.8 /CMM (1.8-8.9); NEUTROPHILS % (AUTO) 74.4 % (43.0-81.0); PLATELET COUNT (AUTO) 221 /CMM (150-450); RDW COEFFICIENT OF VARIATION 11.5 (11.5-15.0); RED BLOOD CELL COUNT(AUTO) 5.72 MIL/uL (4.5-6.0); WHITE BLOOD COUNT (AUTO) 7.9 K/uL (4.3-11.0)
[2017-09-21 14:48] LABS: BACTERIA,URINE Rare /HPF (None Seen); SQUAMOUS EPITHELIAL CELL,UR Rare /HPF (None Seen); WBC,URINE 0-2 /HPF (0-3)
[2017-09-21] MEDS ORDERED: IV NS 0.9% 1,000 ML BAG IV ONE ×2 (15:00→15:30)
[2017-09-21 15:04] LABS: ALANINE AMINOTRANSFERASE 25 U/L (12-78); ALBUMIN 4.2 g/dL (3.4-5.0); ALKALINE PHOSPHATASE 106 U/L (46-116); ASPARTATE AMINOTRANSFERASE 21 U/L (15-37); BILIRUBIN,TOTAL 1.4 mg/dL (0.2-1.0); CALCIUM, SERUM 9.2 mg/dL (8.5-10.1); CARBON DIOXIDE 23 mmol/L (21-32); CHLORIDE 96 mmol/L (98-107); CREATININE 0.9 mg/dL (0.6-1.3); POTASSIUM 4.4 mmol/L (3.5-5.1); SODIUM SERUM 131 mmol/L (136-145); TOTAL PROTEIN, SERUM 7.5 g/dL (6.4-8.2); UREA NITROGEN, BLOOD 15 mg/dL (7-18)
[2017-09-21 15:06] LABS: GLUCOSE 424 mg/dL (74-106)
[2017-09-21] MEDS ORDERED: INSULIN REGULAR, HUMAN 100 UNIT/ML 10 ML VIAL ONE (15:16)
[2017-09-21] MEDS ORDERED: INSULIN REGULAR, HUMAN 100 UNIT/ML 10 ML VIAL SQ ONE (15:30)
--- NOTE | 2017-09-21 15:31 | NUR ---
BS CHECKED 336. INSULIN GIVEN AND WITNESSED BY ROBERTO LUDWIG.
[2017-09-21] MEDS ORDERED: INSULIN GLARGINE, 100 UNIT/ML CARTRIDGE SQ STA (16:24)
[2017-09-21 16:44] VITALS: BP 128/75
== END 2017-09-21 16:49 | disposition home or self-care (01) ==
LOC: ER 14:13
DX: E10.65 Type 1 diabetes mellitus with hyperglycemia (principal); E86.0 Dehydration; F31.9 Bipolar disorder, unspecified; F20.9 Schizophrenia, unspecified; F32.9 Major depressive disorder, single episode, unspecified; F90.9 Attention-deficit hyperactivity disorder, unspecified type; F41.9 Anxiety disorder, unspecified; Z90.49 Acquired absence of other specified parts of digestive tract; Z88.1 Allergy status to other antibiotic agents; F12.10 Cannabis abuse, uncomplicated; Z79.4 Long term (current) use of insulin
CPT/HCPCS: 36415; 80053; 81001; 82010; 82962 ×2; 85025; 96360; 96361; 96372; 99285; 99406; A4606; J1815 ×2; J7030 ×2; Z7610; 81000-TC

== ENCOUNTER 2017-11-25 18:47 | Emergency (ER) | payer OTHER ==
[~2017-11-25] VITALS: Ht 162.6 cm; Wt 54.4 kg
--- NOTE | 2017-11-25 19:22 | NUR ---
PT BIBSELF AMBULATORY TO ER BED 2 C/O ABDOMINAL PAIN, NAUSEA, VOMITING, WEAKNESS x 4-5 DAYS. PT AOX3 RR EVEN AND UNLABORED. NO SOB NOTED. NAD NOTED. NO NVD AT THIS TIME. PT GOWNED AND PLACED ON MONTIOR WAITING FOR MD TODD.
[2017-11-25] MEDS ORDERED: IV NS 0.9% 1,000 ML BAG IV ONE (19:30)
[2017-11-25] MEDS ORDERED: ONDANSETRON HCL/PF 4 MG/2 ML VIAL IVP ONE (19:30)
[2017-11-25] MEDS ORDERED: ONDANSETRON HCL/PF 4 MG/2 ML VIAL ONE (19:32)
[2017-11-25 19:35] LABS: BASOPHILS # (AUTO) 0.1 /CMM (0.0-0.2); BASOPHILS % (AUTO) 1.3 % (0.0-2.0); EOSINOPHILS % (AUTO) 0.8 % (0.0-6.0); HEMATOCRIT 42 % (39-51); LYMPHOCYTES # (AUTO) 1.6 /CMM (0.8-4.8); LYMPHOCYTES % (AUTO) 37.2 % (20.0-44.0); MEAN CORPUSCULAR HEMOGLOBIN 29 PG (26.0-33.0); MEAN CORPUSCULAR HGB CONC 36 g/dl (31.0-36.0); MEAN CORPUSCULAR VOLUME 81 fL (80-96); MONOCYTES # (AUTO) 0.4 /CMM (0.1-1.30); MONOCYTES % (AUTO) 9.3 % (2.0-12.0); NEUTROPHILS # (AUTO) 2.1 /CMM (1.8-8.9); NEUTROPHILS % (AUTO) 51.4 % (43.0-81.0); PLATELET COUNT (AUTO) 180 /CMM (150-450); RDW COEFFICIENT OF VARIATION 12.7 (11.5-15.0); RED BLOOD CELL COUNT(AUTO) 5.16 MIL/uL (4.5-6.0); WHITE BLOOD COUNT (AUTO) 4.2 K/uL (4.3-11.0)
[2017-11-25 19:44] LABS: CALCIUM, SERUM 8.5 mg/dL (8.5-10.1); CREATININE 0.9 mg/dL (0.6-1.3); POTASSIUM 3.5 mmol/L (3.5-5.1)
[2017-11-25 19:50] LABS: ALBUMIN 3.7 g/dL (3.4-5.0); BILIRUBIN,TOTAL 0.5 mg/dL (0.2-1.0); TOTAL PROTEIN, SERUM 7.5 g/dL (6.4-8.2)
--- NOTE | 2017-11-25 20:38 | NUR ---
PAC TJ AT BEDSIDE SPEAKING TO PT REGARDING RESULTS
--- NOTE | 2017-11-25 20:55 | NUR ---
IV removed. Catheter intact and site benign. Pressure and 4x4 applied to site. No bleeding noted. Patient discharged to home in stable condition. Written and verbal after care instructions given. Patient verbalizes understanding of instruction. ambulatory with a steady gait
[2017-11-25 20:56] VITALS: BP 117/76
== END 2017-11-25 20:57 | disposition home or self-care (01) ==
LOC: ER 18:54
DX: K29.70 Gastritis, unspecified, without bleeding (principal); E10.9 Type 1 diabetes mellitus without complications; F41.9 Anxiety disorder, unspecified; F32.9 Major depressive disorder, single episode, unspecified; F20.9 Schizophrenia, unspecified; F90.9 Attention-deficit hyperactivity disorder, unspecified type; F17.200 Nicotine dependence, unspecified, uncomplicated; Z90.89 Acquired absence of other organs; Z88.1 Allergy status to other antibiotic agents
CPT/HCPCS: 36415; 80048-TC; 80076-TC; 83690-TC; 85025-TC; A4606; J2405; J7030; Z7610

== ENCOUNTER 2017-11-27 01:38 | Emergency (ER) | payer OTHER ==
[~2017-11-27] VITALS: Ht 162.6 cm; Wt 54.4 kg
[2017-11-27 02:00] VITALS: BP 115/75
[2017-11-27] MEDS ORDERED: ONDANSETRON 4 MG TAB.RAPDIS PO ONE (03:30)
[2017-11-27] MEDS ORDERED: ONDANSETRON 4 MG TAB.RAPDIS ONE (04:02)
== END 2017-11-27 04:29 | disposition home or self-care (01) ==
LOC: ER 01:39
DX: R10.13 Epigastric pain (principal); E10.65 Type 1 diabetes mellitus with hyperglycemia; F32.9 Major depressive disorder, single episode, unspecified; F41.9 Anxiety disorder, unspecified; F90.9 Attention-deficit hyperactivity disorder, unspecified type; F20.9 Schizophrenia, unspecified; F17.200 Nicotine dependence, unspecified, uncomplicated; Z90.89 Acquired absence of other organs; Z88.1 Allergy status to other antibiotic agents; Z79.4 Long term (current) use of insulin
CPT/HCPCS: 82962-TC; A4606; Q0162; Z7610